=== PATIENT | female | born 1990 | race Caucasian/White ===

== ENCOUNTER 2019-12-16 10:49 | Day surgery (SDC) | payer OTHER ==
[2019-12-11 19:31] VITALS: BMI 29.8
[2019-12-16] MEDS ORDERED: PROPOFOL 20 ML ONE (11:13)
[2019-12-16 14:09] VITALS: TEMP 98.3
[2019-12-16 14:12] VITALS: BP 109/77; PULSE 98
--- NOTE | 2019-12-17 14:54 | PATH ---
Surgical Pathology Report Patient Name: JONATHAN PENA [facility]. Rec. #: [id number] /Age/Gender: 1990 (Age: 29) / F Account: [id number] Location: [facility] Taken: 12/16/2019 Received: 12/16/2019 Reported: 12/17/2019 Physicians: Jl Connors M.D. Specimen(s) Received A: DUODENUM B: STOMACH C: ESOPHAGUS Clinical History Epigastric pain Postoperative diagnosis: Epigastric pain from gallstones Final Diagnosis A. DUODENUM, BIOPSY: DUODENAL MUCOSA WITH NO PATHOLOGIC FINDINGS. B. STOMACH, BIOPSY: MILD CHRONIC GASTRITIS WITH FEATURES OF REACTIVE GASTROPATHY. IMMUNOSTAIN IS NEGATIVE FOR H PYLORI ORGANISMS. C. ESOPHAGUS, BIOPSY: ESOPHAGEAL (SQUAMOUS) MUCOSA WITH NO PATHOLOGIC FINDINGS. NO COLUMNAR EPITHELIUM/INTESTINAL METAPLASIA IS IDENTIFIED. Electronically Signed Ricarda Guerra M.D. Gross Description A. Received in formalin, labeled "biopsy duodenum" is a calles, irregular portion of soft tissue measuring 0.3 cm. in greatest dimension. The specimen is submitted in toto in one cassette. B. Received in formalin, labeled "biopsy stomach" are 3 calles, irregular portions of soft tissue ranging from 0.1-0.3 cm. in greatest dimension. The specimens are submitted in toto in one cassette. C. Received in formalin, labeled "biopsy esophagus" is a calles, irregular portion of soft tissue measuring 0.2 cm. in greatest dimension. The specimen is submitted in toto in one cassette. DL/12/16/2019 saudi/12/16/2019
== END 2019-12-16 12:23 | disposition home or self-care (01) ==
LOC: FASU-ENDO 10:49
PROVIDERS: ATTEND Internal Medicine Gastroenterology
PROC: 0DB68ZX Excision of Stomach, Via Natural or Artificial Opening Endoscopic, Diagnostic (ICD-10-PCS; 2019-12-16)
PROC: 0DB48ZX Excision of Esophagogastric Junction, Via Natural or Artificial Opening Endoscopic, Diagnostic (ICD-10-PCS; 2019-12-16)
PROC: 0DB98ZX Excision of Duodenum, Via Natural or Artificial Opening Endoscopic, Diagnostic (ICD-10-PCS; principal; 2019-12-16 13:00)
DX: K29.50 Unspecified chronic gastritis without bleeding (principal); K31.9 Disease of stomach and duodenum, unspecified; R10.13 Epigastric pain
CPT/HCPCS: 84703; 88305-TC; 88342-TC